=== PATIENT | female | born 1955 ===

== ENCOUNTER → 2018-04-29 | Outpatient (CLI) | payer OTHER ==
[~2018-04-29] VITALS: Ht 157.5 cm; Wt 53.5 kg
[~2018-04-29] MED LIST: CRESTOR5 MG; PREVACID30 MG; SYNTHROID100 MCG
== END | disposition home or self-care (01) ==
LOC: OFIC 805 13:00
DX: T17.298A Other foreign object in pharynx causing other injury, initial encounter (principal)

== ENCOUNTER 2018-04-30 02:49 | Day surgery (SDC) | payer OTHER ==
[~2018-04-30] VITALS: Ht 157.5 cm; Wt 55.8 kg
[2018-04-30] MEDS ORDERED: SYNTHROID100 MCG (03:00)
[2018-04-30] MEDS ORDERED: CRESTOR5 MG (03:00)
[2018-04-30] MEDS ORDERED: PREVACID30 MG (03:00)
== END 2018-04-30 10:20 | disposition home or self-care (01) ==
LOC: ER 02:49 → CIR.AMB 06:08
DX: T17.208A Unspecified foreign body in pharynx causing other injury, initial encounter (principal)